=== PATIENT | female | born 1970 | race Caucasian/White ===

== ENCOUNTER 2021-11-30 06:59 | Emergency (ER) | payer OTHER ==
[2021-11-30 08:17] LABS: HCT 42.5 % (37.0-47.0); HGB 13.6 g/dl (12.5-16.0); LYMPHOCYTE 38.2 % (15-48); MCH 28.9 pg (25.0-31.0); MCV 90.4 fL (78.0-100.0); NEUTROPHIL 50.6 % (41-80); NRBC 0; PLT 282 K/uL (150-400); RDW 13.8 % (11.5-14.0)
[2021-11-30 08:37] LABS: CORONAVIRUS 2019 SARS-COV-2 NEGATIVE (NEGATIVE); INFLUENZA A NAA NEGATIVE (NEGATIVE)
[2021-11-30 08:50] LABS: ALBUMIN 3.1 g/dL (3.4-5.0); BILIRUBIN - TOTAL 0.5 mg/dL (0.2-1.0); BUN/CREAT RATIO (CALC) 16.2 RATIO; CREATININE 0.74 mg/dL (0.51-0.95); GLOBULIN (CALCULATION) 2.9 g/dL; POTASSIUM 3.9 mmol/L (3.5-5.1)
[2021-11-30] MEDS ORDERED: MAXI-TUSS AC L473 ML PO (09:16)
== END 2021-11-30 09:45 | disposition home or self-care (01) ==
LOC: FER 06:59
PROVIDERS: Internal Medicine
DX: B34.9 Viral infection, unspecified (principal); R91.1 Solitary pulmonary nodule; E10.9 Type 1 diabetes mellitus without complications; F17.210 Nicotine dependence, cigarettes, uncomplicated; Z20.822 Contact with and (suspected) exposure to COVID-19
CPT/HCPCS: 36415; 71045; 71250; 80053; 84145; 85025; U0002